=== PATIENT | female | born 1930 | race Caucasian/White ===

== ENCOUNTER → 2017-09-01 | Outpatient (CLI) | payer MEDICARE, BC ==
[~2017-09-01] MED LIST: CALCIUM 600600 M2 PO; CARDI-OMEGA1000 MG PO; COZAAR 25MG25 MG/TAB PO; DUO-KAPS1 CAP PO; JOINT BOOST1 TA1 PO; LEVOXYL0.025 MG PO; LIPITOR20 MG PO; TOPROL XL 25MG25 MG PO; VITAMIN C500 MG PO; ZITHROMAX 250M250 MG PO; [UNRECOGNIZED DRUG - OTHER] PO; [UNRECOGNIZED DRUG - OTHER] PO
== END ==
LOC: MC.RAD 13:51
DX: Z12.31 Encounter for screening mammogram for malignant neoplasm of breast (principal)

== ENCOUNTER 2018-10-31 14:18 | Emergency (ER) | payer MEDICARE, BC ==
[~2018-10-31] VITALS: Ht 170.2 cm; Wt 45.9 kg
[2018-10-31 14:28] VITALS: TEMP 97.8
[2018-10-31] MEDS ORDERED: COZAAR 50MG50 MG/TAB PO (14:40)
[2018-10-31] MEDS ORDERED: SYNTHROID 0.0.025 MG PO (14:40)
[2018-10-31] MEDS ORDERED: SYNTHROID0.05 MG/TA PO (14:41)
[2018-10-31 14:47] LABS: BASO % 0.2 % (0.0-2.0); EOS # 0.1 (0.0-0.7); EOS % 1.4 % (0-4.0); GRAN # 8.4 (1.4-6.5); GRAN % 89.8 % (42.2-75.2); HEMATOCRIT 39.8 % (37.0-47.0); HEMOGLOBIN 13.2 g/dl (12.5-16.0); LYMPH # 0.5 (1.2-3.4); LYMPH % 5.8 % (20.0-51.0); MEAN CELL VOLUME 94 fl (80.0-100.0); MEAN CORPUSCULAR HEMOGLOBIN 31 pg (27.0-31.0); MEAN CORPUSCULAR HGB CONC 33 g/dl (33.0-37.0); MEAN PLATELET VOLUME 9.7 fl (7.4-10.4); MONO # 0.2 (0.1-0.6); MONO % 2.6 % (1.7-9.3); PLATELET COUNT 197 K/mm3 (130-400); RED BLOOD COUNT 4.25 M/mm3 (4.10-5.30); REDCELL DISTRIBUTION WIDTH-CV 12.8 % (11.5-14.5)
[2018-10-31 14:54] LABS: PROTHROMBIN TIME 11.5 SECONDS (9.7-12.8)
[2018-10-31 15:01] LABS: ALANINE AMINOTRANSFERASE 27 U/L (9-52); ALBUMIN 3.8 gm/dL (3.5-5.0); ALKALINE PHOSPHATASE 57 U/L (50-136); ANION GAP 6 mmol/L (7-16); AST,SGOT 36 U/L (15-37); BLOOD UREA NITROGEN 21 mg/dL (7-17); CALCIUM 8.8 mg/dL (8.4-10.2); CARBON DIOXIDE 27 mmol/L (22-30); CHLORIDE 102 mmol/L (98-107); CREATINE KINASE 82 U/L (30-135); CREATININE, serum 0.71 mg/dL (0.52-1.25); GLUCOSE 92 mg/dL (74-106); LIPASE 96 U/L (23-300); POTASSIUM 4.4 mmol/L (3.4-5.0); SODIUM 134 mmol/L (137-145); TOTAL PROTEIN 6.7 gm/dL (6.4-8.2)
[2018-10-31] MEDS ORDERED: UREX1 GM PO (15:11)
[2018-10-31] MEDS ORDERED: PROBIOTIC FORMU1 CAP PO (15:12)
[2018-10-31 15:14] LABS: TROPONIN-I < 0.012 ng/mL (0.000-0.034)
[2018-10-31 17:41] VITALS: BP 107/51; PULSE 70
== END 2018-10-31 17:42 | disposition home or self-care (01) ==
LOC: COL.ER 14:18
PROVIDERS: Emergency Medicine
DX: R07.89 Other chest pain (principal); E03.9 Hypothyroidism, unspecified; Z90.89 Acquired absence of other organs; Z90.710 Acquired absence of both cervix and uterus; Z98.890 Other specified postprocedural states
CPT/HCPCS: J7040; Q9967